=== PATIENT | female | born 1990 ===

== ENCOUNTER 2018-03-18 18:06 | Emergency (ER) | payer SELFPAY ==
--- NOTE | 2018-03-18 19:08 | ED ---
Psychiatric Complaint - HPI Summary HPI Summary: Pt is a 27 y/o female brought in by police who presents to the ED for mental health issues. She had a dream several nights ago that something was grabbing her feet after watching a scary movie, but woke up and saw that there was nothing in her room. Pt realized it was just a dream. She lives in a rehab facility for alcoholism, and yesterday other people were saying that the building was haunted and they felt things grabbing their feet as well. Pt became scared, but still thought that it was a dream and not reality. Today she saw a counselor who started grilling her about the situation and asking if she was hallucinating. Pt became frustrated and screamed, so the counselor called the police. She yelled she wanted to grill him but they heard kill him. She is frustrated because this is a misunderstanding, and she denies any SI or HI. Pt has a hx of anxiety, depression, and alcoholism, and is possibly going to be diagnosed with borderline personality disorder as well. [facility] 1 month ago. - History Of Current Complaint Chief Complaint: [facility]entalHealth Time Seen by Provider: 03/18/18 18:24 Hx Obtained From: Patient Onset/Duration: Sudden Onset, Resolved Severity Currently: None Character: Angry, Frustrated Aggravating Factor(s): Recent Stress - Upset with counselor Related History: Positive For: Prior Psychiatric Issues Has Suicidal: Denies: Thoughts Has Homicidal: Denies: Thoughts - Allergies/Home Medications Allergies/Adverse Reactions: Allergies Allergy/AdvReac Type Severity Reaction Status Date / Time No Known Allergies Allergy Verified 03/18/18 18:38 PMH/Surg Hx/FS Hx/Imm Hx Respiratory History: Reports: Hx Asthma Psychiatric History: Reports: Hx Anxiety, Hx Depression, Hx Substance Abuse - Alcohol - Immunization History Immunizations Up to Date: Yes Infectious Disease History: No Infectious Disease History: Denies: Traveled Outside the [place] in Last 30 Days - Family History Known Family History: Positive: Other - [place], depression - Social History Alcohol Use: Daily Hx Substance Use: Yes Substance Use Type: Reports: Cocaine, Marijuana, Other Hx Tobacco Use: Yes Smoking Status (MU): Current Every Day Smoker Review of Systems Negative: Fever Positive: Other - NEGATIVE: SI, HI All Other Systems Reviewed And Are Negative: Yes Physical Exam - Summary Physical Exam Summary: Appearance: Well appearing, no pain distress Skin: warm, dry, reflects adequate perfusion Head/face: normal Eyes: EOMI, AGAPITO ENT: mucous membranes moist Neck: supple, non-tender Respiratory: CTA, breath sounds present Cardiovascular: RRR, pulses symmetrical Abdomen: non-tender, soft Bowel Sounds: present Musculoskeletal: normal, strength/ROM intact Neuro: normal, sensory motor intact, A&Ox3 Psych: normal affect, no SI, HI Triage Information Reviewed: Yes Vital Signs On Initial Exam: Initial Vitals Temp Pulse Resp BP Pulse Ox 98.4 F 89 16 138/97 98 03/18/18 18:09 03/18/18 18:09 03/18/18 18:09 03/18/18 18:09 03/18/18 18:09 Vital Signs Reviewed: Yes Diagnostics - Vital Signs Vital Signs Temp Pulse Resp BP Pulse Ox 03/18/18 18:09 98.4 F 89 16 138/97 98 - Laboratory Result Diagrams: 03/18/18 19:06 03/18/18 19:06 Lab Statement: Any lab studies that have been ordered have been reviewed, and results considered in the medical decision making process. - EKG 18:51 Cardiac Rate: NL - 66 bpm EKG Rhythm: Sinus Rhythm ST Segment: Normal EKG Interpretation: Normal axis, normal interval Re-Evaluation - Re-Evaluation First Eval Re-Evaluation Time: 19:22 Change: Unchanged Comment: Pt is medically cleared, after speaking with Em from mental health. Course/Dx - Course Course Of Treatment: Patient describes an episode on Sunday morning where she awoke abruptly after feeling like somebody is pulling at her feet. She states that others at the rehabilitation facility have tried to convince her that this was a hallucination. She is talking with her counselor today who got upset with her and felt that she was having hallucinations. She felt extremely judged by this and grew upset with him. She was crying, tearful and mentioned that she wanted to grill him like he grilled her and they allege that she said "kill". Patient states that she is passive, IV again and has never tried to hurt anybody. She refutes any complaint of hallucination. I discussed the case with mental health/crisis who agrees the patient may be dispositioned back to the rehabilitation facility. She has both medically and psychiatrically stable for discharge back. She never has had suicidal, homicidal ideation. - Differential Dx/Clinical Impression Differential Diagnosis/HQI/PQRI: Positive: Acute Psychosis, Anxiety, Depression , Homicidal Ideation, Homicidal Gesture, Suicidal Ideation, Suicidal Gesture Provider Diagnosis: Adjustment disorder with disturbance of emotion Discharge - Sign-Out/Discharge Documenting (check all that apply): Patient Departure - Discharge - Discharge Plan Condition: Stable Disposition: HOME Patient Education Materials: Mood Disorders (ED) Referrals: [facility] [Outside] Additional Instructions: Follow-up with counseling at [facility]. Return if worse, suicidal ideation, concern for harming others, worse, new symptoms or other concerns as discussed. Do not smoke. - Billing Disposition and Condition Condition: STABLE Disposition: Home - Attestation Statements Document Initiated by Scribe: Yes Documenting Scribe: Roya Parra Provider For Whom Scribe is Documenting (Include Credential): Jordin Perez MD Scribe Attestation: Roya Morrison, scribed for Jordin Perez MD on 03/18/18 at 2156. Scribe Documentation Reviewed: Yes Provider Attestation: The documentation as recorded by the Roya briscoe accurately reflects the service I personally performed and the decisions made by , Jordin Perez MD
[2018-03-18 19:13] LABS: ABS Basophils 0 10^3/ul (0-0.2); ABS Eosinophils 0 10^3/ul (0-0.6); ABS Lymphocytes 1.1 10^3/ul (1.0-4.8); ABS Monocytes 0.6 10^3/ul (0-0.8); ABS Neutrophils 3.5 10^3/ul (1.5-7.7); ABS Nucleated RBC 0 10^3/ul; Eosinophil % 0.6 % (0-6); Hematocrit 37 % (35-47); Hemoglobin 12.7 g/dl (12.0-16.0); Lymphocyte % 21.3 % (25-47); Mean Corpuscular HGB Conc 34 g/dl (31-36); Mean Corpuscular Hemoglobin 30 pg (27-31); Mean Corpuscular Volume 89 fL (80-97); Mean Platelet Volume 8.6 um3 (7.4-10.4); Nucleated Red Blood Cells % 0.1; Platelet Count 183 10^3/ul (150-450); Red Blood Count 4.21 10^6/ul (4.00-5.40); Red Cell Distribution Width 13 % (10.5-15); White Blood Count 5.3 10^3/ul (3.5-10.8)
[2018-03-18 19:30] LABS: EGFR Non-African American 84.9 (>60)
[2018-03-18 19:51] VITALS: BP 138/85
== END 2018-03-18 19:51 | disposition home or self-care (01) ==
LOC: ED 18:06
DX: F43.25 Adjustment disorder with mixed disturbance of emotions and conduct (principal); F17.200 Nicotine dependence, unspecified, uncomplicated
CPT/HCPCS: 36415; 80053; 80320; 80329; 84443; 84702; 85025; 93005; 99283; G0480